=== PATIENT | male | born 1990 | race Caucasian/White ===

== ENCOUNTER 2021-10-10 16:26 | Emergency (ER) | payer OTHER ==
[2021-10-10] MEDS ORDERED: Sodium Chloride 0.9% 10 ML Syringe FLUSH PRN (17:01)
[2021-10-10] MEDS: Sodium Chloride 0.9% 1,000 ML IV ONE (17:13)
[2021-10-10] MEDS: Menthol 7.6 MG Sugar Free Lozenge PO PRN (17:26)
[2021-10-10 17:33] LABS: ANION GAP 22.2 mmol/L (5-15)
[2021-10-10 18:17] VITALS: PULSE 96
[2021-10-10 18:24] LABS: BARBITURATE SCREEN,URINE NEGATIVE (NEGATIVE); BENZODIAZEPINES SCREEN,URINE NEGATIVE (NEGATIVE); TCA SCREEN,URINE NEGATIVE (NEGATIVE); THC SCREEN,URINE 50 NG/ML NEGATIVE (NEGATIVE)
[2021-10-10 18:28] VITALS: BP 144/94
[2021-10-10] MEDS: LORazepam 0.5 MG Tab PO ONE (18:36)
[2021-10-10] MEDS: Pantoprazole 40 MG Tab.CR PO ONE (18:36)
== END 2021-10-10 18:47 | disposition other institution (70) ==
LOC: KA.ED 16:26
DX: F10.120 Alcohol abuse with intoxication, uncomplicated (principal); Z72.0 Tobacco use; Z20.822 Contact with and (suspected) exposure to COVID-19; Y90.8 Blood alcohol level of 240 mg/100 ml or more
CPT/HCPCS: 36415; 71045; 80053; 80305-QW; 80307; 85025; 93010; 96360; 99284; 99284-25; A9270-GY; J7030; U0002